=== PATIENT | male | born 1990 | race Caucasian/White ===

== ENCOUNTER 2017-02-16 12:27 | Emergency (ER) | payer BC ==
[2017-02-16 13:18] VITALS: BP 118/68
[2017-02-16] MEDS ORDERED: Ibuprofen TAB* 400 MG PO ONE (13:28)
--- NOTE | 2017-02-16 14:10 | ED ---
Throat Pain/Nasal Congestion - HPI Summary HPI Summary: Pt here w/ ST x 2 days. Rt > Lt. Also has dry cough d/t ST. Denies fever, chills , N/V/D, otalgia, MERCHANT, sinus pain/pressure, neck pain, chest pain, SOB, rash. H/ o allergies this time of year - does not take anything for these. 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 Imms are UTD. H/o strep as a child nothing significant or recurrent. Denies h/o mono. Has not tried anything for sx yet - work sent him here for assessment. - History of Current Complaint Chief Complaint: UCGeneralIllness Time Seen by Provider: 02/16/17 13:16 Hx Obtained From: Patient - Allergies/Home Medications Allergies/Adverse Reactions: Allergies Allergy/AdvReac Type Severity Reaction Status Date / Time No Known Allergies Allergy Verified 02/16/17 13:15 Home Medications: Home Medications NK [No Home Medications Reported] 02/16/17 [History Confirmed 02/16/17] PMH/Surg Hx/FS Hx/Imm Hx Previously Healthy: Yes Endocrine/Hematology History: Denies: Autoimmune Disease Respiratory History: Reports: Hx Seasonal Allergies Infectious Disease History: No Infectious Disease History: Denies: Traveled Outside the [place] in Last 30 Days - Family History Known Family History: Positive: None - Social History 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 Negative: Ear Ache, Nasal Discharge Negative: Chest Pain Negative: Shortness Of Breath, Cough Gastrointestinal: Negative Positive: no symptoms reported Musculoskeletal: Negative Negative: Rash Neurological: Negative Psychological: Normal All Other Systems Reviewed And Are Negative: Yes Physical Exam Triage Information Reviewed: Yes Vital Signs On Initial Exam: Initial Vitals Temp Pulse Resp BP Pulse Ox 99.3 F 90 16 118/68 100 02/16/17 13:13 02/16/17 13:13 02/16/17 13:13 02/16/17 13:13 02/16/17 13:13 Vital Signs Reviewed: Yes Appearance: Positive: Well-Appearing, No Pain Distress, Well-Nourished Skin: Positive: Warm, Dry Head/Face: Positive: Normal Head/Face Inspection - sinuses NTTP Eyes: Positive: Normal, EOMI, Conjunctiva Clear ENT: Positive: Hearing grossly normal, Pharynx normal, Nasal congestion - mild, TMs normal, Tonsillar swelling - +2, Tonsillar exudate - Rt tonsil w/ exudate Neck: Positive: Supple, No Lymphadenopathy, Tenderness @ - Rt submandibular region Respiratory/Lung Sounds: Positive: Clear to Auscultation, Breath Sounds Present. Negative: Rales, Rhonchi, Wheezes Cardiovascular: Positive: Normal, RRR, S1, S2 Abdomen Description: Positive: Nontender, No Organomegaly, Soft Bowel Sounds: Positive: Present Musculoskeletal: Positive: Normal, Strength/ROM Intact Neurological: Positive: Normal, Sensory/Motor Intact, Alert, Oriented to Person Place, Time, CN Intact II-III Psychiatric: Positive: Normal Diagnostics - Vital Signs Vital Signs Temp Pulse Resp BP Pulse Ox 02/16/17 13:13 99.3 F 90 16 118/68 100 - Laboratory Lab Results: Lab Results 02/16/17 Range/Units 13:22 Group A Strep Rapid Negative (Negative) Lab Statement: Any lab studies that have been ordered have been reviewed, and results considered in the medical decision making process. EENT Course/Dx - Course Course Of Treatment: Rapid strep is negative. Test used is supposed to be more sensitive to strep than previously used rapid strep test so will refrain from anbx today. Explained this could be viral pharyngitis and/or mono. He will start supportive care measures and monitor sx. If ST continues exclusively, may have a early neg test for strep. F/u w/ PCP if sx persist. Go to ED if difficulty swallowing, breathing. - Diagnoses Provider Diagnoses: Pharyngitis Discharge - Discharge Plan Condition: Stable Disposition: HOME Patient Education Materials: Pharyngitis (ED) Referrals: Zheng Petersen MD [Medical Doctor] - Additional Instructions: You may try the following supprotive care measures to aid in pain relief: Nasal wash (netti pot) & throat gargle 2 x day with 8 ounces of warm water + 1/ 4 teaspoon of salt Drink 60+ ounces of water daily Sleep 8+ hours per night Avoid Dairy and sugar Hot herbal/decaf tea with lemon & honey Chicken broth (preferably organic, free range chicken) Humidifier in house, but especially near bed at night Try a facial steam with or without eucalyptus essential oil Throat lozenges Ibuprofen alternating with acetaminophen for pain Consider taking Vitamin D3 5,000iu and Vitamin C 1,000mg every day during illness *If you have trouble breathing or swallowing, return to ED
== END 2017-02-16 14:21 | disposition home or self-care (01) ==
LOC: UCCORT 12:27
DX: J02.9 Acute pharyngitis, unspecified (principal); F17.210 Nicotine dependence, cigarettes, uncomplicated
CPT/HCPCS: 87651; 99202; A9270-GY; G0463